=== PATIENT | female | born 1995 | race Caucasian/White ===

== ENCOUNTER 2024-03-22 13:19 | Emergency (ER) | payer BC, SELFPAY ==
[2024-03-22 13:35] VITALS: BP 123/94; PULSE 107; RESP 20; TEMP 36.6; O2SAT 98; BMI 34.5
--- NOTE | 2024-03-22 14:14 | CRLHL7_ITS ---
For Patients: As a result of the Century Cures Act, medical imaging exams and procedure reports are released immediately into your electronic medical record. You may view this report before your referring provider. If you have questions, please contact your health care provider. Indication: Hemoptysis Technique: Chest 2 views Comparison: None Findings/Impression: Cardiovascular and mediastinum: Heart size and vasculature are normal in caliber and appearance. Mediastinum is within normal limits. Lungs and pleural spaces: Lungs are clear. No sign of infiltrate or mass. No sign of pleural effusion. No pneumothorax. Bones and soft tissues: No significant findings. Dictated by Pola Zhang MD @ 03/22/2024 3:41:53 PM (Electronically Signed)
--- NOTE | 2024-03-22 14:22 | ED_ITS ---
HPI - General Adult General Date Seen: 03/22/24 Chief complaint: Nausea/Vomiting Stated complaint: Vomiting blood Time Seen by Provider: 03/22/24 13:50 Source: patient Mode of arrival: ambulatory Limitations: no limitations History of Present Illness HPI narrative: Patient is a 28-year-old, generally healthy young woman who presents with her for evaluation of vomiting blood. She says she had started to feel like she was going to throw up earlier, vomited a total of 3 times. She showed me a picture of the 1st episode which had bright red blood in it. She says the 2nd episode had less bright red blood, more old looking blood and the 3rd episode just had some old looking blood in it. She denies any chest or abdominal pain. She has not had diarrhea, black or bloody stools. No fevers. She does not take significant nonsteroidals, no significant alcohol. Her only medications are for depression/anxiety. She denies other substances aside from occasional social cigarette use. She denies history of GI bleeding, gastric ulcers, gastroesophageal reflux. She has an IUD, last period was normal, no concerns for . Related Data Home Medications ?Medication ?Instructions ?Recorded ?Confirmed desvenlafaxine succinate 25 mg 25 mg PO QDAY 03/26/23 03/26/23 tablet,extended release 24 hr (Pristiq) desvenlafaxine succinate 50 mg 50 mg PO QDAY 03/26/23 03/26/23 tablet,extended release 24 hr (Pristiq) Allergies Allergy/AdvReac Type Severity Reaction Status Date / Time No Known Drug Allergies Allergy Verified 03/22/24 13:44 Review of Systems Status of ROS: Reports: 6 or more systems reviewed and unremarkable except as noted in History and below [facility] Social History Smoking Status: Never smoker How often do you have a drink containing alcohol: monthly or less AUDIT-C Alcohol total score: 1 Non-prescribed substance use: denies use Exam Narrative: Exam Narrative: Vital signs reviewed In general, alert, nontoxic young woman. Head: Normocephalic, atraumatic. Eyes: Sclera clear. Pupils equal and reactive. ENT: Mucous membranes moist. Neck: Supple without adenopathy. Heart: Regular rate and rhythm without murmur. Lungs: Clear. No increased work of breathing, crackles or wheezes. Abdomen: Soft, nontender to palpation. Extremities: Well perfused, pulses intact. No significant edema. Neurologic: Alert, conversant. Speech fluent, face symmetric. Moves all extremities equally. Skin: Warm, dry well perfused. Affect: Anxious. Const: Vital Signs, click to edit/add: Vital Signs - 24 hr 03/22/24 13:35 03/22/24 15:24 03/22/24 16:42 Temperature 97.8 F 97.5 F L Pulse Rate [Left] 107 H 88 97 Respiratory Rate 20 18 20 Blood Pressure [Ri ght Upper Arm] 123/94 H 126/85 132/82 Pulse Oximetry 98 96 99 Oxygen Delivery Me thod Room Air Room Air Room Air Documenting provider has reviewed patient's vital signs: yes Course Course ED Course: Patient was mildly tachycardic on arrival, she also appears significantly anxious. Reassured her that generally speaking these types of symptoms are benign, with suspected Michaelle-Duncan tear, but will get a chest x-ray, check a hemoglobin, give some fluids anti nausea medicine. She does not have any chest or abdominal pain, my suspicion of esophageal rupture is low. After fluids, vital signs are blood pressure 126/85, pulse of 88. She is feeling significantly improved with Zofran. Has had no further vomiting. Continues to deny any chest or abdominal pain. Notably, she had an elevated white blood cell count of 17.8. Hemoglobin is 14.8. Slight left shift with 78% neutrophils. Metabolic panel is notable for a CO2 of 18, normal gap, BUN of 9, creatinine of 0.5. Blood sugars normal. LFTs unremarkable. Lipase was 74. UA is notable for 3+ ketones, 25-50 white blood cells many squames. She continues to deny any urinary symptoms or flank pain, it is difficult to know how to interpret the elevated white blood cell count in the serum and urine but I think overall my bias would be to treat for possible urinary infection and await the culture. She does not appear systemically ill and vital signs are reassuring. With regard to the blood in her emesis, I suspect this is likely Michaelle-Duncan related. Chest x-ray is negative by my review, final radiology read is likewise negative. Plan at this time is to try some p.o. fluids, assuming she feels well with that will discharge her home, I will prescribe Keflex from [facility] for urinary infection. Also prescribing Zofran. Patient drink here without difficulty, no further emesis, no pain. Discharge home with outpatient follow-up if needed for persistent symptoms. Urine culture pending. Return at any time for chest abdominal or flank pain, fevers, shaking chills, increased vomiting of blood, black or bloody stools or other worsening. Vital Signs Vital signs: Initial Vital Signs Temperature 97.8 F 03/22/24 13:35 Temperature Source Temporal Artery Scan 03/22/24 13:35 Pulse Rate 107 H 03/22/24 13:35 Respiratory Rate 20 03/22/24 13:35 Blood Pressure 123/94 H 03/22/24 13:35 Blood Pressure Mean 103 03/22/24 13:35 Blood Pressure Position Sitting 03/22/24 13:35 Pulse Oximetry 98 03/22/24 13:35 Oxygen Delivery Method Room Air 03/22/24 13:35 Vital Signs Temperature 97.8 F 03/22/24 13:35 Pulse Rate 107 H 03/22/24 13:35 Respiratory Rate 20 03/22/24 13:35 Blood Pressure 123/94 H 03/22/24 13:35 Pulse Oximetry 98 03/22/24 13:35 Oxygen Delivery Method Room Air 03/22/24 13:35 Temperature 97.5 F L 03/22/24 15:24 Pulse Rate 97 03/22/24 16:42 Respiratory Rate 20 03/22/24 16:42 Blood Pressure 132/82 03/22/24 16:42 Pulse Oximetry 99 03/22/24 16:42 Oxygen Delivery Method Room Air 03/22/24 16:42 Medications Administered Medications: Discontinued Medications Generic Name Dose Route Start Last Admin Trade Name Freq PRN Reason Stop Dose Admin Sodium Chloride 1,000 mls @ 1,000 mls/hr 03/22/24 14:15 03/22/24 16:25 0.9 % Sodium Chloride 1000 Ml IV 03/22/24 15:14 Infused .Q1H FLORIAN Infusion Ondansetron HCl 4 mg 03/22/24 14:14 03/22/24 15:06 Ondansetron 2 Mg/Ml Inj IVP 03/22/24 14:15 4 mg ONCE ONE Administration Medical Decision Making Lab Data Labs: Lab Results 03/22/24 03/22/24 Range/Units 14:40 Unknown WBC 17.80 H (4.50-11.00) K/uL RBC 4.91 (4.00-5.20) m/uL Hgb 14.8 (12.0-16.0) gm/dL Hct 44.3 (33.0-51.0) % MCV 90 (80-100) fL MCH 30 (26-34) pg MCHC 33 (32-36) gm/dL RDW Coeff of Melecio 12.6 (11.5-15.5) % Plt Count 354 (140-440) K/uL Neut % (Auto) 78.2 H (42.0-72.0) % Lymph % (Auto) 16.6 L (20-44) % [place] % (Auto) 3.1 (0.0-11.0) % Eos % (Auto) 1.6 (0.0-7.0) % Baso % (Auto) 0.3 (0.0-3.0) % Neut # (Auto) 13.90 H (1.7-7.0) K/uL Lymph # (Auto) 3.00 H (0.90-2.90) K/uL [place] # (Auto) 0.60 (0.00-0.90) K/UL Eos # (Auto) 0.30 (0.00-0.50) K/uL Baso # (Auto) 0.10 (0.00-0.30) K/uL Abs Immat Gran (auto) 0.00 (0.00-0.30) K/uL Imm/Tot Granulo (auto) 0.2 % Sodium 139 (135-149) mmol/L Potassium 4.0 (3.6-5.1) mmol/L Chloride 106 (96-114) mmol/L Carbon Dioxide 18 L (20-32) mmol/L Anion Gap 15 (7-15) mEq/L BUN 9 (5-24) mg/dL Creatinine 0.5 (0.5-1.5) mg/dL Estimated Creat Clear 161.44 Estimated GFR 130 ml/min Glucose 109 (60-115) mg/dL Calcium 9.5 (8.4-10.6) mg/dL Total Bilirubin 0.2 (0.1-1.5) mg/dL Direct Bilirubin 0.1 (0.0-0.5) mg/dL AST 30 (12-35) U/L ALT 37 H (4-35) U/L Alkaline Phosphatase 97 (40-150) U/L C-Reactive Protein 1.0 (0.5-1.0) mg/dL Total Protein 8.1 (6.0-8.3) g/dL Albumin 4.9 (3.3-5.0) g/dL Lipase 74 (23-300) U/L Urine Color Yellow (Yellow) Urine Appearance Slightly Cloudy A (Clear) Urine pH 7.5 (5.0-8.5) Ur Specific [place] 1.020 (1.000-1.030) Urine Protein 1+ A (Negative) Urine Glucose (UA) Negative (Negative) Urine Ketones 3+ A (Negative) Urine Blood Negative (Negative) Urine Nitrite Negative (Negative) Urine Bilirubin Negative (Negative) Urine Urobilinogen 0.2 (0.2-1.0) Ur Leukocyte Esterase Negative (Negative) Urine RBC 0-2 (0-2) Urine WBC 25-50 A (0-5) Ur Squamous Epith Cells Many A (None-Few) Amorphous Sediment Few A (None) Urine Bacteria Moderate A (None) Urine Mucus Many A (None) Urine HCG, Qual Negative (Negative) Imaging Data Chest x-ray: Attestation: I have reviewed the pertinent imaging results. Radiologist's impression: Patient: Cayla Arenas MR#: [id number] : 1995 Acct:[id number] Loc: ED Service Date: 03/22/[address]: Ordering Physician: Erica Francis M.D. Date of Service: 03/22/24 Procedure(s): XR chest 2V Accession Number(s): [id number] cc: Erica Francis M.D.; Eloina Hernandez M.D.~ For Patients: As a result of the Century Cures Act, medical imaging exams and procedure reports are released immediately into your electronic medical record. You may view this report before your referring provider. If you have questions, please contact your health care provider. Indication: Hemoptysis Technique: Chest 2 views Comparison: None Findings/Impression: Cardiovascular and mediastinum: Heart size and vasculature are normal in caliber and appearance. Mediastinum is within normal limits. Lungs and pleural spaces: Lungs are clear. No sign of infiltrate or mass. No sign of pleural effusion. No pneumothorax. Bones and soft tissues: No significant findings. Dictated by Pola Zhang MD @ 03/22/2024 3:41:53 PM Discharge Plan Discharge Clinical Impression: Bloody emesis Patient Disposition: Home, Self-Care Condition: Improved Instructions: Acute Nausea and Vomiting (DC), Hematemesis (ED) Additional Instructions: Zofran if needed for nausea. I am prescribing Keflex for an antibiotic. If your culture is negative, you can discontinue the antibiotic. If at any time you develop high fevers, more significant bloody vomit, shaking chills, severe chest, abdominal or back pain, return to the emergency department for re- evaluation. Otherwise, follow-up with primary care for persistent symptoms. Prescriptions: No Action desvenlafaxine succinate [Pristiq] 25 mg tablet extended release 24 hr 25 mg PO QDAY desvenlafaxine succinate [Pristiq] 50 mg tablet extended release 24 hr 50 mg PO QDAY Follow Up/Referrals: Eloina Hernandez MD [Primary Care Provider] - Stand Alone Forms: [employer] Info Instructions
--- OUTSIDE RECORDS SUMMARY | 2024-03-22 14:30 | XMS_ITS | Encounter Summary ---
Author Organization [facility] Address [address] [place] [address] Care Team Providers Care Auricular Acupuncturist Name Role Phone Eloina Hernandez MD Primary Care Provider [phone] Radha Duarte Unavailable [phone] Cha Morris MD Unavailable [phone] Vimal Silverio MD Unavailable [phone] Cha Morris MD Unavailable [phone] Encounter Details Date Type Department Care Team (Late st Contact Info) Description 12/19/2020 [facility] Medical Advice [facility] [address] [facility] [address] [place] [address] Deonte Massey, PT [facility] [id number] [place] [address] [address] [place] [id number] Social History Tobacco Use Types Packs/Day Years Used Date Smoking Tobacco: Never Smokeless Tobacco: Never Alcohol Use Standard Drinks/Week Comments Yes 0 (1 standard drink = 0.6 oz pur e alcohol) Occ. 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 Gender Identity Not on file Sexual Orientation Not on file documented as of this encounter Plan of Treatment Not on file documented as of this encounter Visit Diagnoses Not on filedocumented in this encounter Care Teams Auricular Acupuncturist Relationship Specialty Start Date End Date Eloina Hernandez MD PCP - General Family Practice 11/09/18 Radha Duarte Referring Physician Physician Beauty Advisor 11/09/18 Cha Morris MD [address] [place] [address] [id number] Orthopedics 11/09/18 Vimal Silverio MD [address] [place] [address] [id number] Assigned Neuroscience Provider 02/17/20 05/25/21 Cha Morris MD [address] [place] [address] [id number] Assigned Musculoskeletal Provider 11/18/20 07/25/22 documented as of this encounter
--- OUTSIDE RECORDS SUMMARY | 2024-03-22 14:30 | XMS_ITS | Encounter Summary ---
Author Organization [facility] Address [address] [place] [address] Care Team Providers Care Surgical Scrub Technologist Name Role Phone Eloina Hernandez MD Primary Care Provider Radha Duarte Unavailable [phone] Cha Morris MD Unavailable [phone] Vimal Silverio MD Unavailable [phone] Eric Marrero MD Unavailable [phone] Cha Morris MD Unavailable [phone] Encounter Details Date Type Department Care Team (Late st Contact Info) Description 10/24/2020 [facility] [address] [address] Cha Morris MD [address] [place] [address] Social History Tobacco Use Types Packs/Day Years Used Date Smoking Tobacco: Never Smokeless Tobacco: Never Alcohol Use Standard Drinks/Week Comments Yes 0 (1 standard drink = 0.6 oz pur e alcohol) Occ. 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 Gender Identity Not on file Sexual Orientation Not on file documented as of this encounter Plan of Treatment Not on file documented as of this encounter Visit Diagnoses Not on filedocumented in this encounter Care Teams Surgical Scrub Technologist Relationship Specialty Start Date End Date David, Eloina N, MD PCP - General Family Practice 11/09/18 Radha Duarte Referring Physician Physician Director Trial 11/09/18 Cha Morris MD [address] [place] [id number] Orthopedics 11/09/18 Vimal Silverio MD [address] [place] [address] [id number] Assigned Neuroscience Provider 02/17/20 05/25/21 Eric Marrero MD [address] [place] [address] 15170 Assigned Musculoskeletal Provider 07/22/20 11/17/20 Cha Morris MD [address] [place] [address] Assigned Musculoskeletal Provider 11/18/20 07/25/22 documented as of this encounter
--- OUTSIDE RECORDS SUMMARY | 2024-03-22 14:30 | XMS_ITS | Encounter Summary ---
Author Organization [facility] Address [address] [place] [address] Care Team Providers Care Coach Professional Athletes Name Role Phone Eloina Hernandez MD Primary Care Provider [phone] Radha Duarte Unavailable [phone] Cha Morris MD Unavailable [phone] Cha Morris MD Unavailable [phone] Vimal Silverio MD Unavailable [phone] Chris Sutton MD Unavailable Eric Marrero MD Unavailable Cha Morris MD Unavailable Encounter Details Date Type Department Care Team (Late st Contact Info) Description 12/21/2018 [facility] Medical Advice [facility] [address] [place] [phone] Cha Morris MD [address] [place] [address] [id number] Social History Tobacco Use Types Packs/Day Years Used Date Smoking Tobacco: Never Assessed PHQ-2 Answer Date Recorded PHQ-2 Score 0 12/14/2018 Comments Unknown Sex and Gender Information Value Date Recorded Sex Assigned at Not on file 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 Gender Identity Not on file Sexual Orientation Not on file documented as of this encounter Plan of Treatment Not on file documented as of this encounter Visit Diagnoses Not on filedocumented in this encounter Care Teams Coach Professional Athletes Relationship Specialty Start Date End Date Eloina Hernandez MD PCP - General Family Practice 11/09/18 Radha Duarte Referring Physician Physician Cloth Colorer 11/09/18 Cha Morris MD [address] [place] [phone] Orthopedics 11/09/18 Cha Morris MD [address] [place] [address] [id number] Assigned Musculoskeletal Provider 02/17/20 07/21/20 Vimal Silverio MD [address] [place] [address] 42214 Assigned Neuroscience Provider 02/17/20 05/25/21 Chris Sutton MD [address] [place] [address] [id number] Assigned Surgical Provider 07/11/20 10/06/20 Eric Marrero MD [address] [place] [address] [id number] Assigned Musculoskeletal Provider 07/22/20 11/17/20 Cha Morris MD [address] [place] [address] [id number] Assigned Musculoskeletal Provider 11/18/20 07/25/22 documented as of this encounter
--- OUTSIDE RECORDS SUMMARY | 2024-03-22 14:30 | XMS_ITS | Encounter Summary ---
Author Organization [facility] Address [address] [place] [address] Care Team Providers Care It Account Manager Name Role Phone Eloina Hernandez MD Primary Care Provider [phone] Radha Duarte Unavailable Cha Morris MD Unavailable [phone] Vimal Silverio MD Unavailable [phone] Cha Morris MD Unavailable [phone] Encounter Details Date Type Department Care Team (Late st Contact Info) Description 12/26/2020 [facility] Medical Advice [address] [place] [address] Surekha Cleary RN Social History Tobacco Use Types Packs/Day Years Used Date Smoking Tobacco: Never Smokeless Tobacco: Never Alcohol Use Standard Drinks/Week Comments Yes 0 (1 standard drink = 0.6 oz pur e alcohol) Occ. 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 No / Unsure 12/27/2020 6:04 AM CDT documented as of this encounter Plan of Treatment Not on file documented as of this encounter Visit Diagnoses Not on filedocumented in this encounter Care Teams It Account Manager Relationship Specialty Start Date End Date Eloina Hernandez MD PCP - General Family Practice 11/09/18 Radha Duarte Referring Physician Physician Registered Medical Assistant 11/09/18 Cha Morris MD [address] [place] [address] Orthopedics 11/09/18 Vimal Silverio MD [address] [place] [id number] Assigned Neuroscience Provider 02/17/20 05/25/21 Cha Morris MD [address] [place] [address] 07223 Assigned Musculoskeletal Provider 11/18/20 07/25/22 documented as of this encounter
--- OUTSIDE RECORDS SUMMARY | 2024-03-22 14:30 | XMS_ITS | Clinical Summary ---
Author Organization [facility] Address [address] [place] [address] Care Team Providers Care Staffing And Scheduling Coordinator Name Role Phone Eloina Hernandez MD Primary Care Provider [phone] Radha Duarte Unavailable [phone] Cha Morris MD Unavailable [phone] Allergies No known active allergies Medications Multiple Vitamin (MULTI-VITAMINS) TABS 9 Active desvenlafaxine (PRISTIQ) 100 MG 24 hr tablet Take 100 mg by mouth daily 0 Active busPIRone (BUSPAR) 5 MG half-tab 1 Active acetaminophen (TYLENOL) 325 MG tabletIndication s:Status post knee surgery Take 2 tablets (650 mg) by mouth every 4 hours 120 tablet 1 Active oxyCODONE (ROXICODONE) 5 MG tabletIndication s:Patellar instability of right knee Take 1-2 tablets (5-10 mg) by mouth every 4 hours as needed for moderate to severe pain 12 tablet 1 Active ondansetron (ZOFRAN-ODT) 4 MG ODT tabIndications:P atellar instability of right knee Take 1-2 tablets (4-8 mg) by mouth every 8 hours as needed for nausea 4 tablet 1 Active Active Problems Problem Noted Date Diagnosed Date Pain of left patellofemoral joint 12/18/2020 Overview (12/18/2020): Added automatically from request for surgery [id number] Status post knee surgery 04/06/2019 Patellar instability of right knee 12/15/2018 Resolved Problems Problem Noted Date Diagnosed Date Resolved Date Chronic pain of left knee 01/02/2021 Aftercare following surgery of the musculoskeletal system 01/02/2021 04/18/2021 Left knee pain 04/06/2019 06/21/2019 Social History Tobacco Use Types Packs/Day Years Used Date Smoking Tobacco: Never Smokeless Tobacco: Never Alcohol Use Standard Drinks/Week Comments Yes 0 (1 standard drink = 0.6 oz pur e alcohol) Occ. 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 Gender Identity Not on file Sexual Orientation Not on file Last Filed Vital Signs Vital Sign Reading Time Taken Comments Blood Pressure 130/81 12/27/2020 9:00 AM CDT Pulse 105 12/27/2020 9:00 AM CDT Temperature 36.1 C (97 F) 12/27/2020 9:00 AM CDT Respiratory Rate 15 12/27/2020 9:00 AM CDT Oxygen Saturation 94% 12/27/2020 9:00 AM CDT Inhaled Oxygen Concentration - - Weight 101.6 kg (224 lb) 01/22/2021 3:45 PM CDT Height 173 cm (5' 8.11) 01/22/2021 3:45 PM CDT Body Mass Index 33.95 01/22/2021 3:45 PM CDT Plan of Treatment Health Maintenance Due Date Last Done Comments ADVANCE CARE PLANNING 1994 ANNUAL REVIEW OF HM ORDERS 1994 URINE DRUG SCREEN 1994 YEARLY PREVENTIVE VISIT 1994 HEPATITIS B IMMUNIZATION (2 of 3 - 3-dose series) 1994 1994 HIV SCREENING 2009 HEPATITIS C SCREENING 2012 PAP 07/24/2015 PHQ-2 (once per calendar year) 2023 11/13/2020, 05/03/2019, 05/03/2019, Additional history exists COVID-19 Vaccine ( season) 2023 06/23/2020, 05/26/2020 INFLUENZA VACCINE (#1) 2023 , 01/11/2020, 01/09/2020, Additional history exists DTAP/TDAP/TD IMMUNIZATION (8 - Td or Tdap) 03/07/2029 03/07/2019, 09/23/2006, 08/21/1999, Additional history exists RSV VACCINE (1 - 1-dose 75+ series) 2069 HPV IMMUNIZATION Completed 10/27/2007, , 12/04/2006 MENINGITIS IMMUNIZATION Completed 07/08/2011, 12/04 Pneumococcal Vaccine: Pediatrics (0 to 5 Years) and At-Risk Patients (6 to 64 Years) Aged Out No longer eligible based on patient's age to complete this topic RSV MONOCLONAL ANTIBODY Aged Out No l onger eligible based on patient's age to complete this topic Medical Devices Implanted Type Area Medicinal Chemist Device Identifier Shelf Expiration Date Model / Serial / Lot Graft Tendon Gracilis [id number] Implanted:Qty: 1 on 04/01/2019 by Cha Morris MD at [facility] Bone/Ti ssue/Bi ologic Right: Knee MUSCULOSKELETAL MAX 03/17/2023 [id number] / [id number] / T2 Alpha Tibia System Tibial Nail [id number] Implanted:Qty: 1 on 04/01/2019 by Cha Morris MD at [facility] Right: Knee ELVIA [id number] 04/26/2023 [id number] / / [id number] Imn Screws System Locking Screw 5x40mm Implanted:Qty: 1 on 04/01/2019 by Cha Morris MD at [facility] Right: Knee ELVIA [id number] 01/24/2023 [id number] / / [id number] Imn Screws System Locking Screw 5x55mm Implanted:Qty: 1 on 04/01/2019 by Cha Morris MD at [facility] Right: Knee ELVIA [id number] 08/25/2023 [id number] S / / [id number] Insurance [place] [facility] [place] [id number] [place] Care Teams Staffing And Scheduling Coordinator Relationship Specialty Start Date End Date Eloina Hernandez MD PCP - General Family Practice 11/09/18 Radha Duarte Referring Physician Physician Crucible Furnace Tender 11/09/18 Cha Morris MD [address] [place] [address] Orthopedics 11/09/18
--- OUTSIDE RECORDS SUMMARY | 2024-03-22 14:30 | XMS_ITS | Referral Summary ---
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 Gender Identity Not on file Sexual Orientation [...] 01/22/2021 3:45 PM CDT Plan of Treatment Not on file Medical Devices Implanted Type Area Salesforce Administrator Device Identifier Shelf Expiration Date Model / Serial / Lot Graft Tendon Gracilis [id number] Implanted:Qty: 1 on 04/01/2019 by Cha Morris MD at [facility] Bone/Ti ssue/Bi ologic Right: Knee MUSCULOSKELETAL MAX 03/17/2023 [id number] / [id number] / T2 Alpha Tibia System Tibial Nail [id number] Implanted:Qty: 1 on 04/01/2019 by Cah Morris MD at [facility] Right: Knee ELVIA [id number] 04/26/2023 [id number] S / / [id number] Imn Screws System Locking Screw 5x40mm Implanted:Qty: 1 on 04/01/2019 by Cha Morris MD at [facility] Right: Knee ELVIA [id number] 01/24/2023 [id number] S / / [id number] Imn Screws System Locking Screw 5x55mm Implanted:Qty: 1 on 04/01/2019 by Cha Morris MD at [facility] Right: Knee ELVIA [id number] 08/25/2023 [id number] S / / [id number] [place] Care Teams Tool Salvage Worker Relationship Specialty Start Date End Date Eloina Hernandze MD PCP - General Family Practice 11/09/18 Radha Duarte Referring Physician Physician Outsole Cementer Machine 11/09/18 Cha Morris MD [address] [place] [id number] Orthopedics 11/09/18
--- OUTSIDE RECORDS SUMMARY | 2024-03-22 14:30 | XMS_ITS | Encounter Summary ---
Author Organization [facility] Address [address] [place] [address] Care Team Providers Care Siding Stapler Name Role Phone Eloina Hernandez MD Primary Care Provider Radha Duarte Unavailable [phone] Cha Morris MD Unavailable [phone] Cha Morris MD Unavailable [phone] Vimal Silverio MD Unavailable Chris Sutton MD Unavailable Eric Marrero MD Unavailable Cha Morris MD Unavailable [phone] Encounter Details Date Type Department Care Team (Late st Contact Info) Description 04/18/2019 MyC Medical Advice [facility] [address] [place] [phone] Chris Sutton MD [address] [place] [address] [phone] Social History Tobacco Use Types Packs/Day Years Used Date Smoking Tobacco: Never Smokeless Tobacco: Never Alcohol Use Standard Drinks/Week Comments Yes 0 (1 standard drink = 0.6 oz pur e alcohol) Occ. 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 Gender Identity Not on file Sexual Orientation Not on file documented as of this encounter Plan of Treatment Not on file documented as of this encounter Visit Diagnoses Not on filedocumented in this encounter Care Teams Siding Stapler Relationship Specialty Start Date End Date Eloina Hernandez MD PCP - General Family Practice 11/09/18 Radha Duarte Referring Physician Physician Repairer Welding Systems And Equipment 11/09/18 Cha Morris MD [address] [place] [phone] Orthopedics 11/09/18 Cha Morris MD [address] [place] [address] [phone] Assigned Musculoskeletal Provider 02/17/20 07/21/20 Vimal Silverio MD [address] [place] [address] [phone] Assigned Neuroscience Provider 02/17/20 05/25/21 Chris Sutton MD [address] [place] [address] [id number] Assigned Surgical Provider 07/11/20 10/06/20 Eric Marrero MD [address] [place] [address] [id number] Assigned Musculoskeletal Provider 07/22/20 11/17/20 hCa Morris MD [address] [place] [id number] Assigned Musculoskeletal Provider 11/18/20 07/25/22 documented as of this encounter
[2024-03-22 14:45] LABS: Basophils Percent Auto 0.3 % (0.0-3.0); Eosinophils Percent Auto 1.6 % (0.0-7.0); Hematocrit 44.3 % (33.0-51.0); Hemoglobin* 14.8 gm/dL (12.0-16.0); Immature Granulocytes Pct Auto 0.2 %; Lymphocytes Percent Auto 16.6 % (20-44); Mean Corpuscular HGB Conc 33 gm/dL (32-36); Mean Corpuscular Hemoglobin 30 pg (26-34); Mean Corpuscular Volume 90 fL (80-100); Monocytes Percent Auto 3.1 % (0.0-11.0); Neutrophils Percent Auto 78.2 % (42.0-72.0); Platelet Count* 354 K/uL (140-440); RDW Coefficient of Variation % 12.6 % (11.5-15.5); Red Blood Count 4.91 m/uL (4.00-5.20)
[2024-03-22 14:52] LABS: Appearance Urine Slightly Cloudy (Clear); Bilirubin Urine Negative (Negative); Blood Urine Negative (Negative); Color Urine Yellow (Yellow); Glucose Urine Negative (Negative); Ketones Urine 3+ (Negative); Leukocyte Esterase Urine Negative (Negative); Nitrite Urine Negative (Negative); Protein Urine 1+ (Negative); Urobilinogen Urine 0.2 (0.2-1.0); pH Urine 7.5 (5.0-8.5)
[2024-03-22 15:01] LABS: RBC Urine 0-2 (0-2)
[2024-03-22 15:01] LABS: Chloride* 106 mmol/L (96-114)
[2024-03-22 15:02] LABS: Amorphous Sediment Urine Few; Bacteria Urine Moderate; Squamous Epithelial Cell Urine Many (None-Few); WBC Urine 25-50 (0-5)
[2024-03-22 15:02] LABS: Albumin* 4.9 g/dL (3.3-5.0); Sodium* 139 mmol/L (135-149)
[2024-03-22 15:03] LABS: Mucus Urine Many
[2024-03-22 15:04] LABS: Creatinine* 0.5 mg/dL (0.5-1.5); Est. Creatinine Clearance* 161.44; Estimated Glomerular Filt Rate 130 ml/min
[2024-03-22 15:05] LABS: Alanine Aminotransferase* 37 U/L (4-35); Alkaline Phosphatase* 97 U/L (40-150); Anion Gap 15 mEq/L (7-15); Aspartate Amino Transferase* 30 U/L (12-35); Bilirubin Direct* 0.1 mg/dL (0.0-0.5); Bilirubin Total* 0.2 mg/dL (0.1-1.5); Blood Urea Nitrogen* 9 mg/dL (5-24); Calcium* 9.5 mg/dL (8.4-10.6); Carbon Dioxide* 18 mmol/L (20-32); Glucose* 109 mg/dL (60-115); Lipase* 74 U/L (23-300); Total Protein* 8.1 g/dL (6.0-8.3)
[2024-03-22] MEDS: ONDANSETRON 2 MG/ML inj 4 MG IVP (15:06)
[2024-03-22 15:09] LABS: Ur HCG Qualitative* Negative (Negative)
[2024-03-22 15:11] LABS: Slide Review Reflex Yes
[2024-03-22] MEDS: 0.9 % SODIUM CHLORIDE 1000 ml 1,000 ML IV (15:19)
[2024-03-22 15:24] VITALS: BP 126/85; PULSE 88; RESP 18; TEMP 36.4; O2SAT 96
[2024-03-22 16:42] VITALS: BP 132/82; PULSE 97; RESP 20; O2SAT 99
[2024-03-22 18:51] LABS: Slide Review Acceptable Review (Acceptable)
== END 2024-03-22 16:43 | disposition home or self-care (01) ==
PROVIDERS: Emergency Provider Emergency Medicine; PCP Family Medicine
DX: K92.0 Hematemesis (principal)
CPT/HCPCS: 36415; 71046; 80048; 80076; 81001; 81025; 83690; 85025; 86140; 87086; 96361; 96374; 99284; J2405; J7030